=== PATIENT | female | born 1955 | race African-American/Black ===

== ENCOUNTER → 2017-07-17 | Outpatient (CLI) | payer BC ==
[~2017-07-17] MED LIST: HYDR12.58 PO; MELO7.5T29 PO; OMEP40CA5 PO
--- NOTE | 2017-07-17 16:56 | KCIC ---
Bone Densitometry History: Primary osteoarthritis of the left hip, postmenopausal female. Findings: Bone Densitometry was performed with dual photon absorption of the lumbar spine and left proximal femur. Lumbar Spine: Bone density is 0.946 g/cm2 for L1-L4. T-score is -0.9. Z-score is -0.3. Left total femur: Bone density is 1.163 g/cm2. T-score is 1.8. Z-score is 1.6. IMPRESSION: Borderline osteopenia of the lumbar spine and normal bone mineral density of the left femur. World Health Organization definition of osteoporosis and osteopenia for women: normal equals T score at or above -1.0 standard deviations; osteopenia equals T score between -1.0 and -2.5 standard deviations; osteoporosis equals T score at or below -2.5 standard deviations. Electronically signed by: Rolf Badillo MD (07/17/2017 4:53 PM) [id number]
--- NOTE | 2017-07-18 13:40 | RAD ---
DATE: 07/17/2017 EXAM: MAMMO TIFFANY SCREENING BILATERAL HISTORY: Routine screening COMPARISON: 01/03/2014 This study was interpreted with the benefit of Computerized Aided Detection (CAD). The breast parenchyma shows scattered fibroglandular densities. Breast parenchyma level B. FINDINGS: 2-D and 3-D tomosynthesis imaging was performed in CC and MLO projections. No new or enlarging breast densities are seen. Benign type calcifications are present. No suspicious microcalcifications have developed. IMPRESSION: Stable mammograms without evidence of malignancy. BI-RADS CATEGORY: 2 BENIGN FINDING(S) RECOMMENDED FOLLOW-UP: 12M 12 MONTH FOLLOW-UP PQRS compliance statement: Patient information was entered into a reminder system with a target due date for the next mammogram. Mammography is a sensitive method for finding small breast cancers, but it does not detect them all and is not a substitute for careful clinical examination. A negative mammogram does not negate a clinically suspicious finding and should not result in delay in biopsying a clinically suspicious abnormality. "Our facility is accredited by the [employer] Mammography Program."
== END | disposition home or self-care (01) ==
LOC: KCIC DEXA 15:46
PROVIDERS: ATTEND Internal Medicine
DX: Z12.31 Encounter for screening mammogram for malignant neoplasm of breast (principal); M81.0 Age-related osteoporosis without current pathological fracture; M16.12 Unilateral primary osteoarthritis, left hip; Z78.0 Asymptomatic menopausal state
CPT/HCPCS: 77063; 77080; G0202; 77067

== ENCOUNTER → 2017-07-18 | Day surgery (SDC) | payer BC ==
[~2017-07-18] MED LIST changes: +IV RINGERS,LACTATED 1000ML 1,000 ML IV SCH; +LIDOCAINE 1% PF 2 ML VIAL. ID PRN; +MIDAZOLAM HCL/PF 2 MG/2 ML VIAL. IV PRN; +PROPOFOL 40 ML IV ONE; +fentaNYL PF VIAL 100 MCG/2 ML VIAL IV PRN
--- NOTE | 2017-07-18 11:13 | PDOC1 ---
HISTORY & PHYSICAL H&P Erin Arambula [id number] 1955 07/07/2017 12:00 PM 08/21 [facility], [facility] OUR PATIENTS COME FIRST [address] [place] [address]. [phone] Patient: Erin Arambula Date of : 1955 Date: 07/07/2017 12:00 PM Visit Type: Consult This 62 year old female presents for Bloating, H/o colorectal polyp and Constipation. History of Present Illness: 1. Bloating Duration is 3 Years. Location is epigastric. The patient describes it as aching, bloating and gnawing. Context: no pattern noted. Symptom is aggravated by food. Denies relieving factors. Additional information: Has significant issue with bloating. Has been there for last 3 yrs. Has no evaluation done for that. Had been recently prescribed Omeprazole by her current PCP. 2. H/o colorectal polyp Prior screening: colonoscopy. Risk Factors: h/o colon polyp in 2006. Associated symptoms include abdominal pain and constipation. Pertinent negatives include change in bowel habits, change in stool caliber, decreased appetite, diarrhea, melena, nausea, rectal bleeding, vomiting, weight gain and weight loss. Additional information: No family history of colon cancer, No family history of Crohn's/colitis, No NSAID/ASA use and Has still significant issue with constipation and has BM every 3 to 4 days. 3. Constipation Severity level mild-moderate. Duration 3 Years. The patient describes it as difficulty passing, feeling of fullness, ribbon like and scybalous. She is also experiencing abdominal pain and bloating. Pertinent negatives include black tarry stools, change in stool caliber, nausea, vomiting, weight gain and weight loss. Additional information: Has bm every 3 to 4 days. Stool has been pencil like and pebble like. INTAKE COMMENTS: Intake Comments: Nurse Note: the pt is here today to schedule a colonoscopy, the pt states that she had one around 2006 and she had polyps. The pt states that she is having issues with bloating, and constipation. PROBLEM LIST: No active problems PAST MEDICAL/SURGICAL HISTORY (Detailed) Disease/disorder Onset Date Management Date Comments Appendectomy Medications (Active): Started Medication Directions Instruction Stopped hydrochlorothiazide 25 mg tablet take 1 tablet by oral route every day meloxicam 7.5 mg tablet take 1 tablet by oral route every day omeprazole 40 mg capsule,delayed release take 1 capsule by oral route every day before a meal Allergies: Ingredient Reaction Medication Name Comment NO KNOWN ALLERGIES REVIEW OF SYSTEMS System Neg/Pos Details Constitutional Negative Chills, fever, malaise, weight gain and weight loss. ENMT Negative Sore throat. Eyes Negative Double vision. Respiratory Negative Dyspnea and wheezing. Cardio Negative Chest pain and irregular heartbeat/palpitations. GI Positive Abdominal pain, Bloating, Constipation, See HPI. GI Negative Black tarry stools, change in bowel habits, change in stool caliber , decreased appetite, diarrhea, melena, nausea, see HPI, rectal bleeding and vomiting. Negative Dysuria and hematuria. Endocrine Negative Cold intolerance and heat intolerance. Psych Negative Anxiety. Integumentary Negative Hives and rash. MS Negative Joint pain. Patrice/Lymph Negative Easy bleeding and easy bruising. Allergic/Immuno Negative Food allergies. VITAL SIGNS Time BP mm/Hg Pulse /min Resp /min Temp F Ht ft Ht in Ht cm Wt lb Wt kg BMI kg/ m2 BSA m2 O2 Sat% 12:04 PM 128/76 98 98.1 5.0 8.00 172.72 249.00 112.945 37.86 96 Time Measured by 12:04 PM [facility] PHYSICAL EXAM: Exam Findings Details Constitutional Normal Well developed. Eyes Normal Conjunctiva - Right: Normal, Left: Normal. Sclera - Right: Normal, Left: Normal. Nasopharynx Normal Lips/teeth/gums - Normal. Neck Exam Normal Inspection - Normal. Thyroid gland - Normal. Respiratory Normal Inspection - Normal. Auscultation - Normal. Cardiovascular Normal Regular rate and rhythm. No murmurs, gallops, or rubs. Vascular Normal Pulses - Carotids: Normal, Femoral: Normal, Dorsalis pedis: Normal. Abdomen Normal Inspection - Normal. Anterior palpation - No guarding. No abdominal tenderness. No hepatic enlargement. No splenic enlargement. No hernia. No Ascites. Skin Normal Inspection - Normal. Extremity Normal No edema. Psychiatric Normal Oriented to time, place, person, and situation. Appropriate mood and effect. Assessment/Plan # Detail Type Description 1. Assessment Pain of upper abdomen (R10.10). Patient Plan schedule EGD at [facility]. If EGD is negative to consider gastric emptying study. Plan Orders Further diagnostic evaluations ordered today include(s) EGD to be performed today. 2. Assessment Slow transit constipation (K59.01). Patient Plan Trial of Linzess 72 mg daily. If works well then patient to call for prescription. Plan Orders Further diagnostic evaluations ordered today include(s) Colonoscopy to be performed today. She is to schedule a follow-up visit with Marco Shah MD upon completion of work-up 3. Assessment History of colon polyps (Z86.010). Patient Plan schedule colonoscopy at [facility] Electronically signed by: Marco Shah MD 07/07/2017 02:04 PM Document generated by: Marco Shah 07/07/2017 02:03 PM Sophy Walker MD, Family Practice; Jerry Monroy MD Internal Medicine; Capri Ernst MD, Internal Medicine; Everett Shah MD Internal Medicine; Marco Shah MD, Gastroenterology; Torito Mejia MD, Rheumatology, S. Shane Amezcua, Physical Medicine/Rehab JRemberto Gonzalez APRN ------ 07/08/17 Patient seen and examined. No change in H&P. MARCO SHAH MD Jul 18, 2017 11:13
[2017-07-18 12:40] VITALS: BP 139/76
--- NOTE | 2017-07-19 16:31 | PATHOLOGY ---
PATHOLOGY REPORT * * * * * * * * FINAL DIAGNOSIS: Gastric biopsies, gastric ulcer: - Active chronic gastritis, moderate to marked. COMMENT: Sections of the gastric ulcer biopsy reveal segments of gastric antral mucosa showing moderate to marked active chronic inflammation. There are a few lymphoid follicles containing germinal centers present within the inflammatory infiltrate. A properly controlled immunoperoxidase stain for Helicobacter is obtained. No Helicobacter organisms are identified. There is no evidence of malignancy. (JPM:mgr; 07/19/2017) Special Stain Performed: Immunoperoxidase stain for Helicobacter (A1) REPORT ELECTRONICALLY SIGNED BY: Otf Lazcano M.D. DATE/TIME: 07/19/2017 16:31 * * * * * * * * GROSS PATHOLOGY: Received in formalin labeled "Erin Arambula, gastric ulcer bx," are three segments of posada soft tissue measuring 1.6 x 0.3 x 0.3 cm in aggregate dimensions and ranging from 0.3 to 0.6 cm in maximum dimension. The specimen is submitted entirely in cassette A1. (TSD; 07/18/2017) INITIAL CPT CODE(S): A; 04030, 33314 Professional services performed by [facility] [place] [address] Technical services performed by [facility] at [address] [place] [address]. SPECIMEN(S) RECEIVED: A.Gastric ulcer biopsy CLINICAL HISTORY: Abdominal pain, epigastric pain, polyps PATIENT: ERIN ARAMBULA /AGE: 10 1955 (Age: 62) PATIENT #: [id number] ALT CASE #: SPECIMEN COLLECTION DATE: 07/18/2017 SPECIMEN RECEIVED DATE: 07/18/2017 [facility] - [address] [place] [address] - PHONE: [phone] * * * END OF REPORT * * *
== END | disposition home or self-care (01) ==
LOC: SURG 10:47
PROVIDERS: ATTEND Internal Medicine Gastroenterology
DX: K25.9 Gastric ulcer, unspecified as acute or chronic, without hemorrhage or perforation (principal); Z86.010 Personal history of colon polyps; Z98.890 Other specified postprocedural states
CPT/HCPCS: 43239; 45378; 88305; 88342; J2704